=== PATIENT | female | born 1990 | race Caucasian/White ===

== ENCOUNTER → 2017-07-07 | Outpatient (CLI) | payer MEDICAID | LOC: HPND 08:39 | DX: O26.892 Other specified pregnancy related conditions, second trimester (principal) | CPT/HCPCS: 76811 ==

== ENCOUNTER → 2017-08-05 | Outpatient (CLI) | payer MEDICAID | LOC: HPND 10:03 | DX: O35.8XX0 Maternal care for other (suspected) fetal abnormality and damage, not applicable or unspecified (principal) | CPT/HCPCS: 76816 ==

== ENCOUNTER → 2017-09-02 | Outpatient (CLI) | payer MEDICAID | LOC: HPND 09:51 | DX: O99.413 Diseases of the circulatory system complicating pregnancy, third trimester (principal) | CPT/HCPCS: 76816 ==